=== PATIENT | female | born 1975 ===

== ENCOUNTER 2019-04-15 13:56 | Outpatient (CLI) | payer BC ==
--- NOTE | 2019-04-15 14:18 | RAD ---
XR Abdomen 2 View/1 View Cxr History: Generalized abdominal pain Comparison: None. Findings: Lungs are clear. No pneumothorax. No effusion. Heart X silhouette and mediastinal contours are within normal limits. No acute osseous abnormality. No free air under the hemidiaphragms. No dilated loops of large or small bowel. No abnormal calcifica tions injecting over the renal shadows. Punctate calcification projects between the left second and third transverse processes likely ingeste d in nature. Impression: No acute intra-abdominal or intrathoracic abnormality.
== END 2019-04-15 13:57 | disposition home or self-care (01) ==
LOC: BICRAD 13:56
PROVIDERS: ATTEND Family Medicine
DX: K59.00 Constipation, unspecified (principal); R10.84 Generalized abdominal pain
CPT/HCPCS: 36415; 74022; 80053; 81001; 84443; 85025; 87086

== ENCOUNTER 2020-09-08 10:55 | Outpatient (CLI) | payer OTHER | END 2020-09-08 10:56 | disposition home or self-care (01) | LOC: DTY/OP 10:55 | PROVIDERS: ATTEND Physician Assistant Medical | DX: Z48.815 Encounter for surgical aftercare following surgery on the digestive system (principal); Z98.84 Bariatric surgery status | CPT/HCPCS: 97802 ==